=== PATIENT | male | born 1930 | race Caucasian/White ===

== ENCOUNTER 2018-07-20 11:34 | Day surgery (SDC) | payer MEDICARE, BC ==
[~2018-07-20] VITALS: Ht 180.3 cm; Wt 52.9 kg
[~2018-07-20 11:34] MED LIST: ACET-1757 PO; BISA10SU2 PR; FERR-46 PO; FINA5TAB4 PO; MAGN311T PO; OMEP20TA62 PO; ONDA4TAB7 PO; POLY17PO5 PO; SENN-177 PO; TAMS-11 PO
[2018-07-20] MEDS ORDERED: LACTATED RINGERS 1,000 ML IV SCH (12:41)
[2018-07-20 13:25] VITALS: BP 105/68
[2018-07-20] MEDS ORDERED: POTA20TA6 PO (13:33)
[2018-07-20] MEDS ORDERED: AMOX1TAB64 PO (13:33)
[2018-07-20] MEDS ORDERED: ASCO500T8 PO (13:33)
[2018-07-20] MEDS ORDERED: FENTANYL PF 100 MCG/2ML ONE (15:00)
[2018-07-20] MEDS ORDERED: ROCURONIUM 10MG/ML,5ML ONE (15:02)
[2018-07-20] MEDS ORDERED: SUCCINYLCHOLINE 20 MG/ML, 10ML ONE (15:02)
[2018-07-20] MEDS ORDERED: PROPOFOL 10 MG/ML, 20ML ONE ×2 (15:02)
[2018-07-20] MEDS ORDERED: LIDOCAINE 2%, 6 ML JEL.PF.APP MM ONE (15:03)
[2018-07-20] MEDS ORDERED: PHENYLEPHRINE 10 MG/ML ONE (15:16)
[2018-07-20] MEDS ORDERED: DEXAMETHASONE 4 MG/ML, 1ML ONE (15:27)
[2018-07-20] MEDS ORDERED: ONDANSETRON 2MG/ML, 2ML ONE (15:28)
[2018-07-20] MEDS ORDERED: OMNIPAQUE 350 MG/ML, 50 ML BOTTLE ONE (16:26)
[2018-07-20] MEDS ORDERED: MIDAZOLAM 1 MG/ML, 2ML IV PRN (17:00)
[2018-07-20] MEDS ORDERED: ONDANSETRON 2MG/ML, 2ML IV PRN (17:00)
[2018-07-20] MEDS ORDERED: MORPHINE SULFATE 4 MG/ML, 1ML IVPush PRN (17:00)
[2018-07-20] MEDS ORDERED: LABETALOL 5MG/ML, 20ML IV PRN (17:00)
[2018-07-20] MEDS ORDERED: HYDROmorphone 2 MG/ML, 1ML IVPush PRN (17:00)
[2018-07-20] MEDS ORDERED: MEPERIDINE/PF 25MG/0.5ML IVPush PRN (17:00)
[2018-07-20] MEDS ORDERED: ACETAMINOPHEN 325 MG TABLET PO PRN (17:00)
[2018-07-20] MEDS ORDERED: hydrALAzine 20 MG/ML, 1ML IV PRN (17:00)
[2018-07-20] MEDS ORDERED: HALOPERIDOL 5 MG/ML IV PRN (17:00)
[2018-07-20] MEDS ORDERED: OXYcodone 5 MG/5 ML ORAL.SOL UDC PO PRN (17:00)
[2018-07-20] MEDS ORDERED: PROMETHAZINE 25 MG/ML, 1ML IV PRN (17:00)
[2018-07-20] MEDS ORDERED: ALBUTEROL SULFATE 2.5 MG/3 ML NPPB PRN (17:00)
[2018-07-20] MEDS ORDERED: EPHEDRINE 50 MG/ML, 1ML IVPush PRN (17:00)
[2018-07-20] MEDS ORDERED: DIAZEPAM 5 MG/ML, 2ML IVPush PRN (17:00)
[2018-07-20] MEDS ORDERED: ONDANSETRON ODT 8 MG PO PRN (17:00)
[2018-07-20] MEDS ORDERED: PROMETHAZINE 12.5 MG SUPP PR PRN (17:00)
== END 2018-07-20 18:25 | disposition home or self-care (01) ==
LOC: OUT 11:34
PROVIDERS: ATTEND Internal Medicine Gastroenterology
DX: K83.1 Obstruction of bile duct (principal); K26.9 Duodenal ulcer, unspecified as acute or chronic, without hemorrhage or perforation; K44.9 Diaphragmatic hernia without obstruction or gangrene; K22.8 Other specified diseases of esophagus; K57.10 Diverticulosis of small intestine without perforation or abscess without bleeding; R59.9 Enlarged lymph nodes, unspecified; Z96.89 Presence of other specified functional implants; I10 Essential (primary) hypertension; E78.5 Hyperlipidemia, unspecified; N40.0 Benign prostatic hyperplasia without lower urinary tract symptoms; Z79.899 Other long term (current) drug therapy; Z88.8 Allergy status to other drugs, medicaments and biological substances
CPT/HCPCS: 43239; 43242; 43260; 74328; 88172; 88173; 88177; 88305; 88307; 93005; C1769; J0330; J1100; J2370; J2405; J2704; J3010; J7120; Q9967

== ENCOUNTER 2018-07-28 08:15 | Day surgery (SDC) | payer MEDICARE, BC ==
[~2018-07-28] VITALS: Ht 180.3 cm; Wt 53.0 kg
[~2018-07-28 08:15] MED LIST changes: +AMOX1TAB64 PO; +ASCO500T8 PO; +POTA20TA6 PO
[2018-07-28] MEDS ORDERED: LACTATED RINGERS 1,000 ML IV SCH (09:24)
[2018-07-28] MEDS ORDERED: CIPROFLOXACIN/PMX 400MG/200ML 200 ML IV ONE (09:30)
[2018-07-28 09:39] VITALS: BP 103/55
[2018-07-28 09:41] VITALS: BP 103/55
[2018-07-28 10:09] LABS: BASOPHILS # (AUTO) 0.07 x10^3/uL (0-0.1); BASOPHILS % (AUTO) 1 % (0-1); EOSINOPHILS # (AUTO) 0.22 x10^3/uL (0-0.4); EOSINOPHILS % (AUTO) 3 % (1-7); LYMPHOCYTES % (AUTO) 10 % (22-44); MD NO; MEAN CORPUSCULAR HEMOGLOBIN 30.8 pg (27.5-34.5); MEAN CORPUSCULAR HGB CONC 32.2 g/dL (33.2-36.2); MEAN CORPUSCULAR VOLUME 95.6 fL (81-97); MEAN PLATELET VOLUME 8.6 fL (7.4-10.4); MONOCYTES # (AUTO) 0.54 x10^3/uL (0.2-0.8); MONOCYTES % (AUTO) 7 % (2-9); NEUTROPHILS # (AUTO) 6.28 x10^3/uL (1.8-6.8); NEUTROPHILS % (AUTO) 79 % (42-75); PLATELET COUNT 283 x10^3/uL (130-400); RED BLOOD COUNT 3.57 x10^6/uL (4.38-5.82); RED CELL DISTRIBUTION WIDTH 19.3 % (9.4-14.8)
[2018-07-28 10:13] LABS: INTERNATIONAL NORMALIZED RATIO 1.04 (0.93-1.1); PROTHROMBIN TIME 10.9 Seconds (9.6-11.5)
[2018-07-28] MEDS ORDERED: LIDOCAINE-MPF 1%, 5ML ONE (10:29)
[2018-07-28 11:13] LABS: ALANINE AMINOTRANSFERASE 22 U/L (12-78); ALKALINE PHOSPHATASE 296 U/L (45-117); ANION GAP 14 mmol/L (5-15); BILIRUBIN,TOTAL 1.2 mg/dL (0.2-1.0); CALCIUM 8.6 mg/dL (8.5-10.1); CHLORIDE 115 mmol/L (98-107); CREATININE 1.13 mg/dL (0.7-1.3); TOTAL PROTEIN 7.1 g/dL (6.4-8.2)
== END 2018-07-28 15:00 | disposition home or self-care (01) ==
LOC: OUT 08:15 → EDSTATUS 11:00 → OUT 15:00
PROVIDERS: ATTEND Internal Medicine Gastroenterology
DX: C25.0 Malignant neoplasm of head of pancreas (principal); K83.1 Obstruction of bile duct; K57.10 Diverticulosis of small intestine without perforation or abscess without bleeding; I10 Essential (primary) hypertension; E78.5 Hyperlipidemia, unspecified; N40.0 Benign prostatic hyperplasia without lower urinary tract symptoms; D50.9 Iron deficiency anemia, unspecified; Z79.899 Other long term (current) drug therapy; Z88.6 Allergy status to analgesic agent; Z88.8 Allergy status to other drugs, medicaments and biological substances; Z98.890 Other specified postprocedural states
CPT/HCPCS: 36415; 47534; 80053; 85025; 85610; 99156; 99157; C1729; C1751; C1769; C1894; J0744; J2250; J3010; J7120; 47535